=== PATIENT | female | born 1995 | race Caucasian/White ===

== ENCOUNTER 2024-04-13 06:48 | Emergency (ER) | payer MEDICAID, OTHER ==
[~2024-04-13] VITALS: Ht 172.7 cm; Wt 54.5 kg
[~2024-04-13 06:48] MED LIST: HYDR1TAB PO; IBUP-1984 PO; LEVO-65 PO; NO HOME MEDS; ONDA8TAB13 PO; PANT-47 PO; PRED20TA PO
[2024-04-13 06:50] VITALS: TEMP 100.6
[2024-04-13] MEDS: normal saline 500ml IV soln 500 ML IV ONE ×2 (07:32→08:05)
[2024-04-13 07:53] LABS: BASOPHILS % (AUTO) 0.1 % (0-1); EOSINOPHILS % (AUTO) 0 % (0-6); HEMATOCRIT 28.7 % (35.0-45.0); HEMOGLOBIN 9.7 g/dl (12.0-16.0); LYMPHOCYTES # (AUTO) 0.2 X10'3 (1.1-4.8); LYMPHOCYTES % (AUTO) 1.7 % (21-51); MEAN CORPUSCULAR HEMOGLOBIN 28.5 PG (27.0-31.0); MEAN CORPUSCULAR HGB CONC 33.7 g/dL (33.0-36.5); MEAN CORPUSCULAR VOLUME 84.5 FL (78-98); MEAN PLATELET VOLUME 8.9 FL (7.4-10.4); MONOCYTES # (AUTO) 1.2 X10'3 (0-0.9); MONOCYTES % (AUTO) 8.5 % (2-12); NEUTROPHILS # (AUTO) 12.8 X10'3 (1.8-7.7); NEUTROPHILS % (AUTO) 89.7 % (42-75); PLATELET COUNT 205 X10'3 (140-440); RED CELL DISTRIBUTION WIDTH 16.3 % (11.5-14.5); WHITE BLOOD COUNT 14.2 X10'3 (4.5-11.0)
[2024-04-13 08:07] LABS: ALANINE AMINOTRANSFERASE 21 U/L (12-78); ALBUMIN 2.9 G/DL (3.4-5.0); ALBUMIN/GLOBULIN RATIO 0.9 (1.1-1.5); ALKALINE PHOSPHATASE 53 IU/L (46-116); ANION GAP 12 (8-16); ASPARTATE AMINO TRANSFERASE 18 U/L (10-37); BILIRUBIN,TOTAL 0.5 MG/DL (0.1-1.0); BLOOD UREA NITROGEN 12 MG/DL (7-18); BUN/CREATININE RATIO 14.3 (10.0-20.0); CALCIUM 7.5 MG/DL (8.5-10.1); CHLORIDE 104 MMOL/L (99-107); CREATININE 0.84 MG/DL (0.40-0.90); GLUCOSE 134 MG/DL (70-104); LIPASE 14 U/L (16-77); POTASSIUM 3.3 MMOL/L (3.5-5.1); SODIUM 138 MMOL/L (135-145); TOTAL CARBON DIOXIDE 21.9 MMOL/L (24-32); TOTAL PROTEIN 6.3 G/DL (6.4-8.2); eCRCL 84 ML/MIN; eGFR 79 ML/MIN
[2024-04-13] MEDS ORDERED: CIPR-202 PO (08:11)
[2024-04-13 08:54] VITALS: BP 96/54; PULSE 98; RESP 16; O2SAT 98
== END 2024-04-13 08:55 | disposition home or self-care (01) ==
LOC: ER 06:49
DX: E86.0 Dehydration (principal); K52.89 Other specified noninfective gastroenteritis and colitis; Z79.899 Other long term (current) drug therapy; Z79.2 Long term (current) use of antibiotics; Z79.1 Long term (current) use of non-steroidal anti-inflammatories (NSAID); Z79.52 Long term (current) use of systemic steroids; Z60.2 Problems related to living alone
CPT/HCPCS: 36415; 80053; 83690; 85025; 96360; 99283; J7040

== ENCOUNTER 2025-05-27 21:32 | Emergency (ER) | payer MEDICAID ==
[~2025-05-27] VITALS: Ht 172.7 cm; Wt 65.2 kg
[~2025-05-27 21:32] MED LIST changes: +ONDA-245 PO; -ONDA8TAB13 PO
[2025-05-27 22:04] VITALS: BP 134/82; PULSE 72; O2SAT 100
[2025-05-27] MEDS ORDERED: ANBESOL TP (23:15)
[2025-05-27] MEDS ORDERED: HYDR-3965 PO (23:15)
[2025-05-27] MEDS ORDERED: CLIN-224 PO (23:15)
[2025-05-27 23:19] VITALS: TEMP 98.1
[2025-05-27 23:23] VITALS: RESP 15
[2025-05-27] MEDS: HYDROcodone/acetaminophen 5mg/325mg tablet PO ONE (23:23)
--- NOTE | 2025-05-27 23:38 | Physician Documentation ---
HPI ~ General Chief Complaint: Tooth Problem Stated Complaint: TOOTH PAIN Time Seen by MD: 23:10 OK to notify your PCP?: Yes Primary Medical Doctor: [facility] Source: patient Mode of Arrival: POV Exam Limitations: no limitations History of Present Illness HPI Comment 30-year-old female presents for right lower jaw pain from a broken tooth and some gum swelling for the past week. She denies any discharge from the site. She has not started taking any antibiotics yet. She has been taking Tylenol and ibuprofen at home with no relief. She is having some insurance troubles with trying to get into a dentist at this time. Medication Reconciliation Allergies: Coded Allergies: No Known Allergies (Unverified , 05/30/10) Scheduled Benzocaine* (Anbesol*), 1 APPLIC TP Q2H Clindamycin HCL* (Clindamycin HCL*), 1 CAP PO Q6H Hydrocodone/Acetaminophen (Vicodin 5-500 Tablet), 1 TAB PO Q4H PRN FOR PAIN Ibuprofen* (Motrin*), 400 MG PO Q8H Levofloxacin (Levofloxacin), 500 MG PO DAILY Pantoprazole Sodium (PROTONIX tablet), 1 TABLET PO DAILY Prednisone* (Prednisone*), 2 TAB PO DAILY Scheduled PRN Hydrocodone Bit/Acetaminophen 5/325 MG (Paramount 5/325 MG), 1 TAB PO TID PRN PRN for pain Ondansetron 8mg ODT (Ondansetron Odt), 1 TAB PO TID PRN for nausea/vomiting Miscellaneous Medications Home Med List (No Home Medications), (Reported) Past Medical History Past Medical History: Headache Past Surgical History: no surgical history Alcohol Use: None Drug Use: none Lives with: S/O, Alone Lives In: Home Occupation: employed Review of Systems All Other Systems at this time: Reviewed and Negative Physical Exam Vital Signs: RN Vital Signs have been reviewed: Yes, Temperature: 98.1, Source: Oral, Heart Rate: 72, Respiratory Rate: 15, BP: 134/82, Pulse Oximetry: 100, Weight: 65.250 Oxygen Flow Rate: 0 Pulse Oximetry Reflects: adequate oxygenation Physical Exam General: Alert, no distress. HEENT: No injection, moist mucous membranes. Neck: Full range of motion. Respiratory: No respiratory distress, equal chest rise and fall. Chest: No accessory muscle use. Cardiovascular: Regular rate and rhythm. Gastrointestinal: Nondistended. Extremities: Normal range of motion, no deformity. Neurologic: Oriented x4. Psychiatric: Normal mood and affect. Skin: Normal color, warm and dry. Mouth/Throat: normal mouth inspection Palate: normal inspection Teeth/Gums: carious, fractured tooth (#29), missing teeth, tender, gingiva redness, gingiva swelling Face: normal inspection Progress Results/Orders Reviewed/noted all lab results: Yes Results/Orders Completed Orders - ALTHEA EUGENE [employer] JE[employer] Clindamycin Capsule (Cleocin Capsule) (05/27/25 23:15) Hydrocodone/Apap 5/325mg Tab (Paramount 5/32 (05/27/25 23:15) Medications Received in ER Medications (Trade) Dose Ordered Sig/Christian Route PRN Reason Start Time Stop Time Status Last Admin Dose Admin (Cleocin capsule) 300 mg ONCE ONCE PO 05/27/25 23:15 05/27/25 23:16 DC 05/27/25 23:23 300 MG (Paramount 5/325mg tablet) 1 tab ONCE ONCE PO 05/27/25 23:15 05/27/25 23:16 DC 05/27/25 23:23 1 TAB Vital Signs 05/27/25 05/27/25 05/27/25 22:04 23:19 23:23 Temp 98.1 98.1 Pulse 72 Resp 18 15 B/P (MAP) 134/82 Pulse Ox 100 O2 Flow Rate 0 Medical Decision Making Additional info obtained from: old records Findings 30-year-old female with a fractured tooth and some jaw pain and swelling. I started her on clindamycin with the 1st dose given here in the department. I started her on some Paramount with the 1st dose given here in the department and the rest sent to her pharmacy. I also sent a prescription for benzocaine to her pharmacy as well. We discussed that she needs to have that tooth removed by a dentist as soon as possible and to call her dentist 1st thing Thursday morning, to try to be seen within the next week. She agrees with the plan. Differential Dx:Considerations: Include: Facial Cellulitis, Trigeminal neuralgia, Tooth subluxation Departure Disposition: HOME / SELF CARE / HOMELESS Impression: Primary Impression: Dental abscess Condition: Stable Discharge Instructions: Dental Pain, Dental Abscess Additional Instructions: Please see a dentist within the next week and return back here for any new or worsening symptoms. Referrals: NO PRIMARY CARE PROVIDER (PCP) Prescriptions Clindamycin HCL* (Clindamycin HCL*) 300 Mg Capsule 1 CAP PO Q6H for 10 Days, #40 CAP Prov: ALTHEA EUGENE 05/27/25 Benzocaine* (Anbesol*) 12 Ml Bottle 1 APPLIC TP Q2H for 3 Days, #1 EACH Prov: ALTHEA EUGENE 05/27/25 Hydrocodone Bit/Acetaminophen 5/325 MG (Paramount 5/325 MG) 5 Mg/325 Mg Tablet 1 TAB PO TID PRN PRN for pain for 5 Days, #15 TAB Prov: ALTHEA EUGENE 05/27/25 Education Educated: Patient Educated regarding: diagnosis, treatment, prognosis, need for follow up Additional Comment Medical Screen Exam This patient recieved a medical screening examination. After reviewing the individual's medical complaints with presenting symptoms and performing an appropriate physical examination, it was determined that no immediate life-threatening emergency medical condition is present. This individual is also not a women having contractions. Signature Scribe Signature: . Attestation: Scribed for Althea Eugene by Althea Narvaez NP . 05/28/25 01:37 Parts of this note were created using [employer] voice recognition software program. While efforts were made to correct any mistakes made by this voice recognition software program, nonsensical phrases may remain in this note. In addition, there may be errors and syntax, grammar, content and spelling. ALTHEA EUGENE May 27, 2025 23:38
== END 2025-05-27 23:25 | disposition home or self-care (01) ==
LOC: ER 21:32
DX: K04.7 Periapical abscess without sinus (principal); Z79.899 Other long term (current) drug therapy; Z60.2 Problems related to living alone
CPT/HCPCS: 99283